=== PATIENT | male | born 1970 | race Caucasian/White ===

== ENCOUNTER 2021-01-29 11:27 | Outpatient (REF) | payer BC, SELFPAY ==
--- NOTE | ~2021-01-29 | XR_ITS ---
EXAMINATION: XR CHEST CLINICAL INFORMATION: U07.1 - COVID-19 COMPARISON: None TECHNIQUE: 2 views of the chest were obtained. FINDINGS: There is some mild coarsening bronchiolar markings lower zones without lobar segmental airspace consolidation or definite groundglass opacity. No hyperinflation. No pneumothorax or pneumomediastinum. The costophrenic sulci are clear. The heart is normal in size and the hilar and mediastinal contours and bony structures are unremarkable. XR/XR chest 2V IMPRESSION: No airspace consolidation or definite groundglass opacity.
[2021-01-29 12:23] LABS: MANUAL DIFF FLAG NO
[2021-01-29 12:31] LABS: Basophils Percent Auto 0.5 % (0-2); Eosinophils Absolute Auto 0.2 X10*3/uL (0.0-0.4); Eosinophils Percent Auto 2.9 % (0-4); Hematocrit 41.2 % (42-52); Hemoglobin 13.5 g/dl (14.0-18.0); Imm Gran Abs Auto 0.02 X10*3/uL (0.00-0.03); Imm Gran Pct Auto 0.3 % (0.0-0.4); Lymphocytes Absolute Auto 2.4 X10*3/uL (1.2-4.9); Lymphocytes Percent Auto 37.7 % (20-40); Mean Corpuscular HGB Conc 32.8 g/dl (31.0-36.0); Mean Corpuscular Hemoglobin 29.7 pg (27.0-33.0); Mean Corpuscular Volume 90.5 fL (80-98); Mean Platelet Volume 10.1 fL (9.4-12.4); Monocytes Absolute Auto 0.5 X10*3/uL (0.1-1.2); Monocytes Percent Auto 8.5 % (2-11); Neutrophils Absolute Auto 3.1 X10*3/uL (2.0-8.3); Neutrophils Percent Auto 50.1 % (45-73); Platelet Count 303 X10*3/uL (160-400); Red Blood Count 4.55 X10*6/uL (4.60-5.80); Red Cell Distribution Width 13.1 % (11.0-16.0); White Blood Count 6.2 X10*3/uL (4.8-10.8)
[2021-01-29 12:50] LABS: Alanine Aminotransferase 23 U/L (0-40); Albumin Level 4.3 g/dL (3.5-5.0); Alkaline Phosphatase 69 U/L (39-117); Anion Gap 14 (12-20); Aspartate Amino Transferase 18 U/L (5-37); Bilirubin Total 0.5 mg/dL (0.0-1.0); Blood Urea Nitrogen 13 mg/dL (9-16); Carbon Dioxide 24 mmol/L (22-29); Chloride 107 mmol/L (96-108); Cholesterol 228 mg/dL; Estimated Glomerular Filt Rate > 60; Glucose Random 84 mg/dL (60-115); HDL Cholesterol 37 mg/dL; LDL Cholesterol Calculated 155 mg/dl; Potassium 4.5 mmol/L (3.3-5.1); Sodium 140 mmol/L (135-145); Total Protein 7.5 g/dL (6.5-8.0); Triglycerides 183 mg/dL
[2021-01-29 13:02] LABS: Thyroid Stimulating Hormone 0.83 uIU/mL (0.32-4.0)
[2021-01-29 13:08] LABS: Glucose Urine UA NEG (NEG); Leukocyte Esterase Urine NEG (NEG); Nitrite Urine NEG (NEG); PH 5.5 (5.0-8.0); Specific Gravity - Urine >= 1.030 (1.005-1.025); Urine Blood NEG (NEG); Urine Ketones NEG (NEG); Urine Protein NEG (NEG-TRACE)
[2021-01-29 13:09] LABS: Appearance Urine CLEAR; Color Urine YELLOW
[2021-01-29 13:28] LABS: Folate 13.5 ng/mL (> or = 4.0); Vitamin B12 489 pg/mL (200-900)
[2021-01-29 13:29] LABS: Prostate Specific Antigen Scr 0.81 ng/mL (<0.05-4.0)
[2021-01-29 13:46] LABS: Mucus Urine TRACE /LPF; RBC Urine 0-2 /HPF (0); Squamous Epithelial Cell Urine 1+ /LPF; WBC Urine 0-2 /HPF (0-4)
== END 2021-01-29 11:28 | disposition home or self-care (01) ==
LOC: HO.LAB 11:27
PROVIDERS: PCP Internal Medicine; Visit Provider Internal Medicine
DX: U07.1 COVID-19 (principal); R42 Dizziness and giddiness; R51.9 Headache, unspecified; E78.00 Pure hypercholesterolemia, unspecified; Z12.5 Encounter for screening for malignant neoplasm of prostate
CPT/HCPCS: 36415; 71046; 80053; 80061; 81001; 82607; 82746; 84153; 84439; 84443; 85025

== ENCOUNTER 2021-07-10 08:21 | Day surgery (SDC) | payer BC, SELFPAY ==
[2021-07-06 09:34] VITALS: BMI 33.5
--- NOTE | 2021-07-09 09:35 | P.CONAN_ITS ---
Documented by User: Renetta Young NP 07/09/21 09:36 HPI - Anesthesia Eval Consult details Narrative: 51yo M for Colonoscopy [facility] Active Problems Active Problems: All Active Problems (Updated 07/06/21 @ 09:31 by Juany Escobar, OLGA) COVID-19 virus infection (Acute) Colon cancer screening (Acute) Annual physical exam (Acute) Hypercholesterolemia (Acute) Anemia (Acute) Obesity (BMI 30-39.9) (Acute) Flank pain (Acute) Rectal bleed (Acute) Constipation (Acute) Past Medical History Medical History (Updated 07/06/21 @ 09:31 by Juany Escobar, OLGA) Anemia COVID-19 vaccine series completed Elevated cholesterol History of COVID-19 Family History Family History (Updated 03/16/21 @ 17:27 by Tony Rubin MD) Mother No problems noted. Brother CVA (cerebral vascular accident) Maternal Grandfather Throat cancer Maternal Aunt Schizophrenia Social History Social History (Updated 01/15/21 @ 11:28 by Lata Watts CMA) Alcohol intake: never Advance Directives: No Advance Directives Information Provided: Yes Meds Allergies Allergy/AdvReac Type Severity Reaction Status Date / Time No Known Allergies Allergy Verified 07/06/21 09:34 Home Medications Medication Instructions Recorded Confirmed Last Taken Type acetaminophen 500 mg capsule 500 mg PO Q6H PRN 01/15/21 07/06/21 Unknown History Exam Exam Date and Time: July 09, 2021 0935 Height,Weight and Vital Signs: Height 5 ft 8 in Weight 100.244 kg Pertinent Lab Results Pertinent Lab Results: Laboratory Tests 01/29/21 01/29/21 11:58 11:58 WBC 6.2 Hgb 13.5 L Hct 41.2 L Plt Count 303 Sodium 140 Potassium 4.5 Chloride 107 Carbon Dioxide 24 BUN 13 Creatinine 0.82 Assessment and Plan Assessment Anesthesia Assessment: Chart Reviewed Documented by User: Elvis Richmond MD 07/10/21 08:42 [facility] Past Medical History Medical History (Updated 07/06/21 @ 09:31 by Juany Escobar RN) Anemia COVID-19 vaccine series completed Elevated cholesterol History of COVID-19 Family History Family History (Updated 03/16/21 @ 17:27 by Tony Rubin MD) Mother No problems noted. Brother CVA (cerebral vascular accident) Maternal Grandfather Throat cancer Maternal Aunt Schizophrenia Family history of problems with anesthesia: No Surgical History History of Problems with Anesthesia: No Social History Social History (Updated 01/15/21 @ 11:28 by Lata Watts CMA) Alcohol intake: never Advance Directives: No Advance Directives Information Provided: Yes Meds Allergies Allergy/AdvReac Type Severity Reaction Status Date / Time No Known Allergies Allergy Verified 07/06/21 09:34 Home Medications Medication Instructions Recorded Confirmed Last Taken Type acetaminophen 500 mg capsule 500 mg PO Q6H PRN 01/15/21 07/06/21 Unknown History Exam Airway Mallampati Class: II TM Dist: >3cm Neck ROM: Full Loose/Missing/Broken Teeth: No Heart: rrr+[id number] Lungs: cta b/l Assessment and Plan Assessment Anesthesia Assessment: Anesthesia Plan Discussed and PAT Visit Final Anesthetic Review Family History of Problems with Anesthesia: No History of Problems with Anesthesia: No NPO: Yes ASA Class: II Final Preanesthetic Review: No Changes in Pt Med Stat, Meds/Allgs Chart Reviewed, Consent Obtained/Reviewed and Anes Risks/Benef Reviewed Patient Risk: Intermediate Procedure Risk: Low Assessment/Block/Sedation in SS: Assess/Block/Sedation-SS Anesthetic Plan Anesthetic Plan: MAC: and Regional Block Disposition: Standard PACU
[2021-07-10 08:26] VITALS: BP 140/79; PULSE 85; RESP 16; TEMP 36.6; O2SAT 96
[2021-07-10] MEDS: Lactated Ringers 1,000 ML 100 ML IVCONT (08:35)
--- NOTE | 2021-07-10 08:42 | MHC.SHP ---
Pre-Procedural Eval Section A Date of Service: 07/10/21 The patient is an INPATIENT: No Changes since office visit: No Cold of Flu in the past 2 weeks, No New Medical Problems, No Changes in Medication and No Patient answered all questions The History & Physical has been completed within 30 days and I have reviewed it.: Yes Section B Chief Complaint: abnormal feces Allergies: Allergies Allergy/AdvReac Type Severity Reaction Status Date / Time No Known Allergies Allergy Verified 07/06/21 09:34 Plan I have reviewed the history and physical and performed a pertinent physical examination on my patient. No changes have occurred unless specified.
[2021-07-10 09:15] VITALS: BP 94/57; PULSE 84; RESP 16; TEMP 37; O2SAT 96
--- NOTE | 2021-07-10 09:16 | P.BOP_ITS ---
Brief Operative Note Date of Service: 07/10/21 Pre-op diagnosis: heme pos stool Post-op diagnosis: same (colon polyps) Procedure: colonoscopy Surgeon: Ronald Lamb Anesthesia: MAC Was an School Psychologist used for this Procedure?: No Estimated blood loss (mL): 2 Pathology: other (polyps x3) Condition: stable Disposition: PACU
[2021-07-10 09:30] VITALS: BP 109/74; PULSE 83; RESP 16; O2SAT 96
--- NOTE | 2021-07-10 09:31 | OP_ITS ---
SURGEON: Ronald Lamb MD INDICATIONS: Hemoccult-positive stools. PREOPERATIVE DIAGNOSIS: POSTOPERATIVE DIAGNOSIS: PROCEDURE PERFORMED: Colonoscopy to the terminal ileum with snare polypectomy. ESTIMATED BLOOD LOSS: COMPLICATIONS: ANESTHESIA: ASSISTANTS: SPECIMENS: MEDICATIONS: Monitored anesthesia care. DESCRIPTION OF PROCEDURE: History and physical performed. The risks and benefits of the procedure were explained to the patient. Informed consent was obtained. The patient was placed in the left lateral decubitus position. A digital rectal exam was performed and was found to be normal. The Olympus pediatric video colonoscope was introduced into the rectum and advanced to the cecum without difficulty. The cecum was identified by transillumination, palpation, and identification of ileocecal valve. Examination was performed and the scope was removed. He tolerated the procedure well and was taken to recovery area in stable condition. FINDINGS: The terminal ileum was examined and appeared normal. The visualized colonic mucosa was normal. The quality of the prep was good. Three polyps were identified and removed with a snare, all measured less than 10 mm. These were located at 80, 60, and 40 cm. No other polyps were identified. Retroflexed examination showed internal hemorrhoids. IMPRESSION: Colon polyps. RECOMMENDATION: Follow up the biopsy results. MD RAMIREZ Still/TRAVON / [id number]
[2021-07-10 09:43] VITALS: BP 102/65; PULSE 79; RESP 16; O2SAT 96
--- NOTE | 2021-07-10 10:10 | PC.NURSE ---
Discharge instructions by Snehal Lucas RN with [facility] [place] Hydraulic Rockbreaker Operator
== END 2021-07-10 10:10 | disposition home or self-care (01) ==
PROVIDERS: PCP Internal Medicine; Visit Provider Internal Medicine Gastroenterology
PROC: 0DJD8ZZ Inspection of Lower Intestinal Tract, Via Natural or Artificial Opening Endoscopic (ICD-10-PCS; CPT 45378; principal; 2021-07-10 08:50)
DX: R19.5 Other fecal abnormalities (principal); D12.4 Benign neoplasm of descending colon; D12.5 Benign neoplasm of sigmoid colon; K64.8 Other hemorrhoids; D64.9 Anemia, unspecified; Z79.899 Other long term (current) drug therapy; Z86.16 Personal history of COVID-19
CPT/HCPCS: 45385; 88305

== ENCOUNTER 2023-07-29 10:00 | Outpatient (AMB) | payer BC, SELFPAY ==
[2023-07-29 10:23] VITALS: BP 130/76; PULSE 84; O2SAT 98; BMI 35.6
--- NOTE | 2023-07-29 10:23 | MHC.PC.OV ---
Vital Signs 07/29/23 10:23 Height 5 ft 8 in Weight 234 lb BMI 35.6 BP 130/76 Blood Pressure Location Lt brachial Position Sitting Pulse 84 Pulse Source Pulse Oximeter Pulse Oximetry (%) 98 Oxygen Delivery Method Room Air Intake Visit Reasons: Physical exam Allergies No Known Allergies Allergy (Verified 07/29/23 10:24) Medication List - Last Reconciled 07/29/23 by Tony Rubin MD acetaminophen 500 mg PO Q6H PRN Tobacco use date assessed: 07/29/23 Dental Screening Dental Screen Date: 07/29/23 Did you have a dental visit in the last 12 months?: Yes Did you have a dental problem in the last 6 months where you did not have access to dental care?: No Was dental information given to patient?: Patient has dentist HPI Physical exam HPI Details 53-year-old obese male with hypercholesterolemia and anemia comes in for physical exam last seen in 2020.. Patient had colonoscopy done July 2021 had colon polyps tubular adenoma. dizzy 1 months. complains coughing- and sob, intermittent, 2 months Tiki 99 interpret PFSH Medical History (Updated 07/29/23 @ 11:01 by Tony Rubin MD) COVID-19 vaccine series completed History of COVID-19 Elevated cholesterol Anemia Family History (Updated 07/29/23 @ 11:06 by Tony Rubin MD) Mother CVA (cerebral vascular accident) Brother CVA (cerebral vascular accident) Maternal Grandfather Throat cancer Maternal Aunt Schizophrenia Social History (Updated 07/29/23 @ 11:06 by Tony Rubin MD) Alcohol intake: never Patient Tobacco Use Status: Never used Tobacco Cognitive needs: No Hearing needs: No Vision needs: No Questionnaire PHQ-9 Over the last 2 weeks, how often have you been bothered by any of the following problems? 1. Little interest or pleasure in doing things: not at all 2. Feeling down, depressed, or hopeless: not at all 3. Trouble falling or staying asleep, or sleeping too much: not at all 4. Feeling tired or having little energy: not at all 5. Poor appetite or overeating: not at all 6. Feeling bad about yourself - or that you are a failure or have let yourself or your family down: not at all 7. Trouble concentrating on things, such as reading the newspaper or watching television: not at all 8. Moving or speaking so slowly that other people could have noticed. Or the opposite - being so fidgety or restless that you have been moving around a lot more than usual: not at all 9. Thoughts that you would be better off or of hurting yourself in some way: not at all Total score: 0 Depression Screening Interpretation: Negative Source: Developed by Drs. Sen Watson, Shayy Chaudhary, Jacob Siddiqi and colleagues, with an educational amandeep from [employer]. Thrive Questionnaire Date Thrive assessed: 07/29/23 I am a: Patient What is your living situation today?: I have a steady place to live Within the past 12 months, did the food you bought not last and you didn't have the money to get more?: Never true Within the past 12 months, did you worry whether your food would run out before you got money to buy more?: Never true Do you have trouble paying for medicines?: No Do you have trouble getting transportation to medical appointments?: No Do you have trouble paying your heating and electricity bill?: No Do you have trouble taking care of your child, family member or friend?: No Do you have trouble with day-to-day activities such as bathing, preparing meals, shopping, managing finances, etc.?: No Are you currently unemployed and looking for a job?: No Are you interested in more education?: No Currently or been in a relationship where the following occur: no concerns reported AUDIT C Alcohol Use Questionnaire (AUDIT-C) 1. How often do you have a drink containing alcohol?: Never 2. How many drinks containing alcohol do you have on a typical day when you are drinking?: 1 or 2 (0) 3. How often do you have six or more drinks on one occasion?: Never Total Score: 0 PRUDENCIO-7 AMB Questionnaire PRUDENCIO-7 Date PRUDENCIO - 7 assessed: 07/29/23 Feeling nervous, anxious, or on edge: 0 = Not at all Not being able to stop or control worryin = Not at all Worrying too much about different things: 0 = Not at all Trouble relaxin = Not at all Being so restless that it is hard to sit still: 0 = Not at all Becoming easily annoyed or irritable: 0 = Not at all Feeling afraid as if something awful might happen: 0 = Not at all Total PRUDENCIO-7 score (0-4 normal; 5-9 mild; 10-14 moderate; 15-21 severe): 0 Source: Developed by Drs. Sen Watson, Shayy Chaudhary, Jacob Siddiqi and colleagues, with an educational amandeep from [employer]. Review of Systems Const Denies poor appetite and Denies weakness Eyes Denies no additional complaints ENT Reports Normal hearing present, Denies dizziness, Denies nasal congestion, Denies tinnitus and Denies sore throat Card Denies chest pain, Denies syncope, Denies rapid heart rate and Denies dyspnea Resp Denies cough and Denies dyspnea GI Denies change in stool character, Reports constipation, Denies diarrhea, Denies nausea and Denies vomiting Denies dysuria and Denies urinary frequency Neuro Reports Normal hearing present, Denies confusion, Denies dizziness, Denies syncope and Denies weakness Psych Denies confusion Physical exam (Primary Care) Vital Signs: Last Vital Signs Pulse 84 07/29/23 10:23 BP 130/76 07/29/23 10:23 Pulse Ox 98 07/29/23 10:23 Oxygen Delivery Method Room Air 07/29/23 10:23 BMI result Body Mass Index 35.6 Tobacco/Smoking Status: Tobacco use Status Tobacco use date assessed 07/29/23 07/29/23 10:27 Patient Tobacco Use Status Never used Tobacco 07/29/23 11:06 PHQ-9: PHQ-9 Score PHQ-9: Total score 0 07/29/23 11:11 Depression Screening Interpretation: Negative Thrive Assessment: Date of Thrive Assessment Date Thrive assessed 07/29/23 07/29/23 10:27 Currently or been in a relationship where the following occur: no concerns reported Const General: alert and awake; No confusion Orientation/consciousness: No confusion HENMT Head: Yes normocephalic Ears: external ears normal and TM's normal bilaterally Face and sinus: Yes normal facial exam Mouth: moist mucous membranes Throat: Yes tonsils normal Eyes Conjunctivae: conjunctivae normal Pupils: Equal, round and reactive pupils present and Pupil accommodation reflex normal Direct Ophthalmoscopy: normal light reflex Neck Neck: No lymphadenopathy Thyroid: Thyroid normal Chest Chest palpation & inspection: normal inspection of the chest Resp Effort & Inspection: normal respiratory effort and no audible wheezes Auscultation: clear to auscultation bilaterally, no crackles, no wheezes and lung sounds not diminished Cardio Rate: regular rate Rhythm: regular rhythm Peripheral pulses: radial pulses present and dorsalis pedis present GI Palpation (GI): no masses Auscultation: normal bowel sounds and normoactive bowel sounds Rectal Exam - Male: Yes deferred Skin General skin exam: no rashes or lesions noted Rashes: no rashes Neuro General: deep tendon reflexes 2+ bilaterally and No confusion Cranial nerves: Yes Equal, round and reactive pupils present, Yes Midline tongue present, Yes Normal hearing present and Yes Ability to bilaterally elevate shoulders present Cognition (Neuro): normal cognition Gait exam (Neuro): Normal gait present Motor exam (neuro): 5/5 motor strength present throughout Deep tendon reflexes (DTR's): Right brachioradialis reflex intensity grade: 2+, Left brachioradialis reflex intensity grade: 2+, Right patellar reflex intensity grade: 2+ and Left patellar reflex intensity grade: 2+ Extrem General: No edema Immunizations tetanus-diphtheria toxoids-Td 2 Lf unit-2 Lf unit/0.5 mL IM suspension Performing Provider: Tony Rubin MD Per[facility] Administered by: MARIPOSA Varner on 07/29/23 11:37 Dose Route Admin Location Dispensed Lot Number Expiration Date [employer]DC Water [employer] 0.5 mL IM Left Deltoid 0.5 mL [id number] 03/12/24 [address]-2 [employer] VIS Given Date VIS Provided VIS Publication Date 07/29/23 Single Vaccine 21 Eligibility Eligibility Date Funding Source Not [facility] Eligible 07/29/23 State funds Assessment and Plan Assessment & Plan (1) Annual physical exam: Code(s): Z00.00 - Encounter for general adult medical examination without abnormal findings (2) Hypercholesterolemia: Code(s): E78.00 - Pure hypercholesterolemia, unspecified Plan: Avoid fried foods, chicken skin, eggs, butter margarine, pastries and meat. Be it pork or beef they have a lot of cholesterol LDL goal of less than 130 and triglyceride of less than 150. 2020 last blood work (3) Tubular adenoma of colon: Comment: July 2021 Dr. Lamb Code(s): D12.6 - Benign neoplasm of colon, unspecified Plan: Tubular adenoma July 2021 (4) Obesity (BMI 30-39.9): Code(s): E66.9 - Obesity, unspecified Plan: Diet and exercise (5) Anemia: Code(s): D64.9 - Anemia, unspecified Qualifiers: Anemia type: unspecified type Qualified Code(s): D64.9 - Anemia, unspecified Plan: Will follow-up this with blood work Orders: Orders Ferritin Today D64.9 - Anemia, unspecified Free T4 (Free Thyroxine) Today D64.9 - Anemia, unspecified Thyroid Stimulating Hormone Today D64.9 - Anemia, unspecified Comprehensive Met. Panel Today D64.9 - Anemia, unspecified XR chest 2V Today D64.9 - Anemia, unspecified ECG 12 lead EKG Today D64.9 - Anemia, unspecified Td State Immunization Today Z23 - Encounter for immunization Complete Blood Count Auto Diff Today D64.9 - Anemia, unspecified IRON PROFILE Today D64.9 - Anemia, unspecified Prostate Specific Antigen Scr Today D64.9 - Anemia, unspecified Vitamin B12 and Folate Today D64.9 - Anemia, unspecified Lipid Panel Today D64.9 - Anemia, unspecified, E78.00 - Pure hypercholesterolemia, unspecified Reticulocyte Count Today D64.9 - Anemia, unspecified Coding Level of Care Code Est Pt Prev Care 40-64y(47280) Diagnoses Annual physical exam Z00.00 Hypercholesterolemia E78.00 Tubular adenoma of colon D12.6 Obesity (BMI 30-39.9) E66.9 Anemia, unspecified type D64.9 Anemia type: unspecified type
== END 2023-07-29 14:43 | disposition home or self-care (01) ==
PROVIDERS: PCP Internal Medicine; Visit Provider Internal Medicine
DX: Z23 Encounter for immunization (principal); Z00.00 Encounter for general adult medical examination without abnormal findings; E78.00 Pure hypercholesterolemia, unspecified; E66.9 Obesity, unspecified; Z68.35 Body mass index [BMI] 35.0-35.9, adult
CPT/HCPCS: 90471; 90714; 99396

== ENCOUNTER 2023-12-01 10:35 | Outpatient (REF) | payer BC, SELFPAY ==
[2023-12-01 10:47] LABS: MANUAL DIFF FLAG NO
[2023-12-01 11:14] LABS: Basophils Absolute Auto 0.1 X10*3/uL (0.0-0.2); Basophils Percent Auto 0.8 % (0-2); Eosinophils Absolute Auto 0.1 X10*3/uL (0.0-0.4); Eosinophils Percent Auto 1.5 % (0-4); Hematocrit 39.7 % (42.0-52.0); Hemoglobin 13.1 g/dl (14.0-18.0); Imm Gran Abs Auto 0.03 X10*3/uL (0.00-0.03); Imm Gran Pct Auto 0.4 % (0.0-0.4); Immature Retic Fraction 12.5 % (2.3-13.4); Lymphocytes Absolute Auto 2.6 X10*3/uL (1.2-4.9); Lymphocytes Percent Auto 34.9 % (20-40); Mean Corpuscular Volume 90.8 fL (80.0-98.0); Mean Platelet Volume 10.2 fL (9.4-12.4); Monocytes Absolute Auto 0.8 X10*3/uL (0.1-1.2); Neutrophils Absolute Auto 3.8 x10*3/uL (2.0-8.3); Neutrophils Percent Auto 51.4 % (45-73); Platelet Count 315 X10*3/uL (160-400); Red Blood Count 4.37 X10*6/uL (4.60-5.80); Red Cell Distribution Width 12.7 % (11.0-16.0); Retic HGB Equivalent 35.6 pg (30.0-35.0); Reticulocyte Percent 1.6 % (0.5-1.8); Reticulocytes Absolute 0.068 X10*6/uL (0.026-0.095); White Blood Count 7.4 X10*3/uL (4.8-10.8)
[2023-12-01 11:43] LABS: Alanine Aminotransferase 24 U/L (0-40); Albumin Level 3.9 g/dL (3.5-5.0); Alkaline Phosphatase 68 U/L (39-117); Anion Gap 10 (12-20); Aspartate Amino Transferase 17 U/L (5-37); Bilirubin Total 0.3 mg/dL (0.0-1.0); Blood Urea Nitrogen 14 mg/dL (9-16); Calcium 8.8 mg/dL (8.4-10.2); Carbon Dioxide 27 mmol/L (22-29); Chloride 108 mmol/L (96-108); Cholesterol 183 mg/dL (<200); Estimated Glomerular Filt Rate > 60; Glucose Random 83 mg/dL (60-115); HDL Cholesterol 34 mg/dL (>40); Iron 84 mcg/dL (45-160); LDL Cholesterol Calculated 111 mg/dL (<100); Percent Iron Saturation 35 % (15-50); Potassium 4.1 mmol/L (3.3-5.1); Sodium 141 mmol/L (135-145); Total Iron Binding Capacity 237 mcg/dL (228-428); Total Protein 7.1 g/dL (6.5-8.0); Triglycerides 191 mg/dL (<150); Unsaturated Iron Binding 153 ug/dL
[2023-12-01 12:03] LABS: Ferritin 276 ng/mL (20-250); Free T4 (Free Thyroxine) 0.92 ng/dL (0.71-1.85); Thyroid Stimulating Hormone 1.01 uIU/mL (0.32-4.0)
[2023-12-01 12:15] LABS: Folate 11.1 ng/mL (> or = 4.0); Prostate Specific Antigen Scr 0.94 ng/mL (<0.05-4.0)
[2023-12-01 12:20] LABS: Vitamin B12 474 pg/mL (200-900)
== END 2023-12-01 10:36 | disposition home or self-care (01) ==
LOC: HO.LAB 10:35
PROVIDERS: PCP Internal Medicine; Visit Provider Internal Medicine
DX: D64.9 Anemia, unspecified (principal); E78.00 Pure hypercholesterolemia, unspecified; Z12.5 Encounter for screening for malignant neoplasm of prostate
CPT/HCPCS: 36415; 80053; 80061; 82607; 82728; 82746; 83540; 84153; 84439; 84443; 85025; 85045

== ENCOUNTER 2023-12-02 09:28 | Outpatient (AMB) | payer BC, SELFPAY ==
[2023-12-02 09:29] VITALS: BP 132/86; PULSE 92; O2SAT 95; BMI 36.0
--- NOTE | 2023-12-02 09:29 | A.OFFPC_ITS ---
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 Review of the notes had a physical at that time and was advised blood work and is here for follow-up. [facility] Medical History (Updated 07/29/23 @ 11:01 by Tony Rubin MD) COVID-19 vaccine series completed History of COVID-19 Elevated cholesterol Anemia Family History (Updated 07/29/23 @ 11:06 by Tony Rubin MD) Mother CVA (cerebral vascular accident) Brother CVA (cerebral vascular accident) Maternal Grandfather Throat cancer Maternal Aunt Schizophrenia Social History (Updated 07/29/23 @ 11:06 by Tony Rubin MD) Alcohol intake: never Patient Tobacco Use Status: Never used Tobacco Cognitive needs: No Hearing needs: No Vision needs: No Questionnaire PHQ-9 Over the last 2 weeks, how often have you been bothered by any of the following problems? 1. Little interest or pleasure in doing things: not at all 2. Feeling down, depressed, or hopeless: not at all 3. Trouble falling or staying asleep, or sleeping too much: not at all 4. Feeling tired or having little energy: not at all 5. Poor appetite or overeating: not at all 6. Feeling bad about yourself - or that you are a failure or have let yourself or your family down: not at all 7. Trouble concentrating on things, such as reading the newspaper or watching television: not at all 8. Moving or speaking so slowly that other people could have noticed. Or the opposite - being so fidgety or restless that you have been moving around a lot more than usual: not at all 9. Thoughts that you would be better off or of hurting yourself in some way: not at all Total score: 0 Depression Screening Interpretation: Negative Depression Screening Done: Yes Source: Developed by Drs. Sen Watson, Shayy Chaudhary, Jacob Siddiqi and colleagues, with an educational amandeep from [employer]. Thrive Questionnaire Date Thrive assessed: 07/29/23 AUDIT C Alcohol Use Questionnaire (AUDIT-C) 1. How often do you have a drink containing alcohol?: Never 2. How many drinks containing alcohol do you have on a typical day when you are drinking?: 1 or 2 (0) 3. How often do you have six or more drinks on one occasion?: Never Total Score: 0 PRUDENCIO-7 AMB Questionnaire PRUDENCIO-7 Date PRUDENCIO - 7 assessed: 12/02/23 Source: Developed by Drs. Sen Watson, Shayy Chaudhary, Jacob Siddiqi and colleagues, with an educational amandeep from [employer]. Physical exam (Primary Care) Vital Signs: Last Vital Signs Pulse 92 12/02/23 09:29 BP 132/86 12/02/23 09:29 Pulse Ox 95 12/02/23 09:29 Oxygen Delivery Method Room Air 12/02/23 09:29 BMI result Body Mass Index 36.0 Tobacco/Smoking Status: Tobacco use Status Tobacco use date assessed 12/02/23 12/02/23 09:37 Patient Tobacco Use Status Never used Tobacco 12/02/23 09:29 PHQ-9: PHQ-9 Score PHQ-9: Total score 0 12/02/23 09:39 Depression Screening Interpretation: Negative Thrive Assessment: Date of Thrive Assessment Date Thrive assessed 07/29/23 12/02/23 09:29 Const General: alert; No acute distress Eyes Conjunctivae: conjunctivae normal Resp Auscultation: clear to auscultation bilaterally Cardio Rate: regular rate Rhythm: regular rhythm GI Inspection: Yes normal to inspection Extrem General: Yes normal to inspection and No edema Assessment and Plan Assessment & Plan (1) Anemia: Code(s): D64.9 - Anemia, unspecified Qualifiers: Anemia type: unspecified type Qualified Code(s): D64.9 - Anemia, unspecified Plan: Chronic anemia continue to monitor. Up-to-date with colonoscopy (2) Hypercholesterolemia: Code(s): E78.00 - Pure hypercholesterolemia, unspecified Plan: Avoid fried foods, chicken skin, eggs, butter margarine, pastries and meat. Be it pork or beef they have a lot of cholesterol LDL goal of less than 130 and triglyceride of less than 150. Diet control (3) Obesity (BMI 30-39.9): Code(s): E66.9 - Obesity, unspecified Plan: Diet and exercise Coding Level of Care Code Est Pt Level 4 (18249) Diagnoses Anemia, unspecified type D64.9 Anemia type: unspecified type Hypercholesterolemia E78.00 Obesity (BMI 30-39.9) E66.9
== END 2023-12-02 10:26 | disposition home or self-care (01) ==
PROVIDERS: PCP Internal Medicine; Visit Provider Internal Medicine
DX: D64.9 Anemia, unspecified (principal); E78.00 Pure hypercholesterolemia, unspecified; E66.9 Obesity, unspecified; Z68.36 Body mass index [BMI] 36.0-36.9, adult
CPT/HCPCS: 99214

== ENCOUNTER 2024-05-02 14:16 | Outpatient (AMB) | payer BC, SELFPAY ==
[2024-05-02 14:18] VITALS: BP 140/70; PULSE 87; O2SAT 97; BMI 34.5
--- NOTE | 2024-05-02 14:18 | A.OFFPC_ITS ---
Vital Signs 05/02/24 14:18 Height 5 ft 8 in Weight 227 lb BMI 34.5 BP 140/70 H Blood Pressure Location Lt brachial Position Sitting Pulse 87 Pulse Source Pulse Oximeter Pulse Oximetry (%) 97 Oxygen Delivery Method Room Air Intake Visit Reasons: lump right breast Soaking Room Operator Required: No Rn Maternal Child: Not Required per policy Accompanied by: Self / Same As Patient Allergies No Known Allergies Allergy (Verified 05/02/24 14:18) Medication List - Last Reconciled 05/02/24 by Tony Rubin MD amoxicillin-pot clavulanate 875-125 mg 1 tab PO BID Tobacco use date assessed: 12/02/23 Dental Screening Dental Screen Date: 12/02/23 HPI lump right breast HPI Details 54-year-old obese male(noted 10 lb weigh t loss) with anemia and hypercholesterolemia last seen in 11/26/2023. Patient is up-to-date with colonoscopy 07/27/2021. Last blood work was 11/26/2023 patient comes in for a specific problem. noted R breast mass 1 month , no trauma, nmo discharge, , has pain on working of [employer] [facility] Medical History (Updated 05/02/24 @ 14:47 by Tony Rubin MD) COVID-19 vaccine series completed History of COVID-19 Elevated cholesterol Anemia Family History Mother CVA (cerebral vascular accident) Brother CVA (cerebral vascular accident) Maternal Grandfather Throat cancer Maternal Aunt Schizophrenia Social History (Updated 07/29/23 @ 11:06 by Tony Rubin MD) Alcohol intake: never Patient Tobacco Use Status: Never used Tobacco Cognitive needs: No Hearing needs: No Vision needs: No Questionnaire Thrive Questionnaire Date Thrive assessed: 07/29/23 PRUDENCIO-7 AMB Questionnaire PRUDENCIO-7 Date PRUDENCIO - 7 assessed: 12/02/23 Source: Developed by Drs. Sen Watson, Shayy Chaudhary, Jacob Siddiqi and colleagues, with an educational amandeep from [employer]. Physical exam (Primary Care) Vital Signs: Last Vital Signs Pulse 87 05/02/24 14:18 BP 140/70 H 05/02/24 14:18 Pulse Ox 97 05/02/24 14:18 Oxygen Delivery Method Room Air 05/02/24 14:18 BMI result Body Mass Index 34.5 Tobacco/Smoking Status: Tobacco use Status Tobacco use date assessed 12/02/23 05/02/24 14:19 Patient Tobacco Use Status Never used Tobacco 05/02/24 14:19 Thrive Assessment: Date of Thrive Assessment Date Thrive assessed 07/29/23 05/02/24 14:19 Const General: alert; No acute distress Eyes Conjunctivae: conjunctivae normal Chest Other: breast exam tender retroareolar R 2 cm and L normal Resp Auscultation: clear to auscultation bilaterally Cardio Rate: regular rate Rhythm: regular rhythm GI Inspection: Yes normal to inspection Extrem General: Yes normal to inspection and No edema Assessment and Plan Assessment & Plan (1) Obesity (BMI 30-39.9): Code(s): E66.9 - Obesity, unspecified Plan: Diet and exercise noted weight loss. (2) Anemia: Comment: Anemia of chronic disease Code(s): D64.9 - Anemia, unspecified Qualifiers: Anemia type: unspecified type Qualified Code(s): D64.9 - Anemia, unspe cified Plan: Continuing to monitor. (3) Breast mass, right: Comment: R breast mass retroareolar 2 cm Code(s): N63.10 - Unspecified lump in the right breast, unspecified quadrant Qualifiers: Breast mass location: subareolar Qualified Code(s): N63.41 - Unspecified lump in right breast, subareolar Plan: With the tenderness will sent in antibiotic but ultrasound and mammogram requested Orders: Orders MM tomosynthesis diagnostic BI Today N63.10 - Unspecified lump in the right breast, unspecified quadrant US breast RT limited Today N63.10 - Unspecified lump in the right breast, unspecified quadrant Medications: New amoxicillin-pot clavulanate 875-125 mg 1 tab PO BID 14 tabs 0RF N63.10 - Unspecified lump in the right breast, unspecified quadrant Coding Level of Care Code Est Pt Level 4 (95408) Diagnoses Obesity (BMI 30-39.9) E66.9 Anemia, unspecified type D64.9 Anemia type: unspecified type Subareolar mass of right breast N63.41 Breast mass location: subareolar
== END 2024-05-02 14:50 | disposition home or self-care (01) ==
PROVIDERS: PCP Internal Medicine; Visit Provider Internal Medicine
DX: D64.9 Anemia, unspecified (principal); N63.41 Unspecified lump in right breast, subareolar; E66.9 Obesity, unspecified; Z68.34 Body mass index [BMI] 34.0-34.9, adult
CPT/HCPCS: 99214

== ENCOUNTER 2024-05-28 13:27 | Outpatient (REF) | payer BC, SELFPAY ==
--- NOTE | ~2024-05-28 | MM_ITS ---
EXAMINATION: MM DIAGNOSTIC DIGITAL BREAST TOMOSYNTHESIS, BILATERAL US BREAST LIMITED, BILATERAL MAMMOGRAPHY: CLINICAL INFORMATION: 54 year male presenting with bilateral retroareolar swelling, tenderness, with itchiness of the nipples. COMPARISON: Mammography: No prior. Baseline exam. TECHNIQUE: Digital breast tomosynthesis is performed in both the craniocaudal and mediolateral oblique views along with computer-aided detection (CAD). Synthesized 2D images are generated from the tomosynthesis. FINDINGS: The breasts are almost entirely fatty (ACR BI-RADS breast composition Category a). There is right greater than left retroareolar breast tissue development, consistent with moderate right greater than left male gynecomastia. There is no suspicious mass, suspicious calcifications, or area of architectural distortion in either breast. There is no skin or axillary abnormality. ULTRASOUND: CLINICAL INFORMATION: As above COMPARISON: None TECHNIQUE: Targeted sonographic evaluation bilateral breasts was performed using a high frequency linear transducer. The retroareolar regions of both breasts were focused on. Selected archived documentation. FINDINGS: RIGHT BREAST: There is moderate retroareolar breast tissue development consistent with male gynecomastia. No suspicious mass is seen. There is no cystic abnormality. There is no pathologic acoustic shadowing. LEFT BREAST: There is mild to moderate retroareolar breast tissue development consistent with male gynecomastia. In addition, in the 4:00 axis of the left breast, abutting the pectoralis fascia, there is a triangular shaped hypoechoic region with posterior acoustic attenuation, measuring approximately 1.3 x 1.1 x 1.3 cm. This has no internal color Doppler flow but robust abutting color Doppler signal. It is somewhat irregular. This finding is suspicious. In addition, directly above this is a somewhat linear tubular structure with low-level internal echoes, and no color Doppler signal. This could be a thrombosed vein, or a duct filled with debris or mass. MM/MM tomosynthesis diagnostic BI IMPRESSION: -In the left breast at the 4:00 axis, there is an irregular markedly hypoechoic masslike region abutting the pectoralis-as described above, suspicious. Recommend ultrasound-guided biopsy. -There are no suspicious findings in the right breast. -There is moderate right and mild to moderate left male gynecomastia. Recommend clinical management and follow-up for these findings. -Findings recommendations discussed with the patient in detail, who appeared to understand. OVERALL ASSESSMENT: Mammography: BI-RADS 4 - Suspicious finding Ultrasound: BI-RADS 4 - Suspicious finding RECOMMENDATION: Biopsy recommended
== END 2024-05-28 13:28 | disposition home or self-care (01) ==
LOC: HO.MAMMO 13:27
PROVIDERS: PCP Internal Medicine; Visit Provider Internal Medicine
DX: R92.8 Other abnormal and inconclusive findings on diagnostic imaging of breast (principal); N63.10 Unspecified lump in the right breast, unspecified quadrant; N64.4 Mastodynia; N63.0 Unspecified lump in unspecified breast; L29.8 Other pruritus
CPT/HCPCS: 76642; 77062; 77066

== ENCOUNTER → 2024-05-28 13:30 | Outpatient (BNV) | payer BC, SELFPAY | PROVIDERS: PCP Internal Medicine; Visit Provider Radiology Diagnostic Radiology | DX: N63.10 Unspecified lump in the right breast, unspecified quadrant (principal) | CPT/HCPCS: 76642; 77062; 77066 ==

== ENCOUNTER 2024-06-11 08:49 | Outpatient (AMB) | payer BC, SELFPAY ==
--- NOTE | 2024-06-11 08:51 | A.OFFVIS_ITS ---
Vital Signs 06/11/24 08:57 Height 5 ft 8 in Weight 227 lb BMI 34.5 BP 131/70 Blood Pressure Location Rt brachial Position Sitting Pulse 75 Intake Visit Reasons: ultrasound biopsy left breast 4 o'clock mass Intake Note: Patient referred by pcp Dr. Rubin for US guided bx lt br 4 o'clock mass. Patient noticed mass 2m ago. Denies prior trauma. Tenderness with touch. Patient had similar growth on rt br but cleared w/amoxicillin course. Bilateral br US and Mammo: 05-28-2024. 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 He has had a proximally 2 month history of left breast subareolar mass. Because of concerns, patient has had extensive workup including mammogram and ultrasound demonstrating/confirming this process. Patient was tentatively scheduled for ultrasound-guided biopsy. Patient not recall any trauma to the area. He has not taken any supplemental hormones. Family history positive for sister for breast cancer Chart was reviewed and patient evaluated. [facility] Medical History COVID-19 vaccine series completed History of COVID-19 Elevated cholesterol Anemia Family History Mother CVA (cerebral vascular accident) Brother CVA (cerebral vascular accident) Maternal Grandfather Throat cancer Maternal Aunt Schizophrenia Social History Alcohol intake: never Patient Tobacco Use Status: Never used Tobacco Cognitive needs: No Hearing needs: No Vision needs: No Physical Exam Vital Signs: Last Vital Signs Pulse 75 06/11/24 08:57 BP 131/70 06/11/24 08:57 BMI result Body Mass Index 34.5 HEENT Other: No cervical periclavicular axillary adenopathy Chest Other: Right breast within normal limits. No obvious mass, discharge, adenopathy, or skin changes. Contralateral left breast demonstrates a small subareolar mass at a proximally 1 to 3 o'clock position. This measured approximately 2 cm. Nontender GI Other: Abdomen corpulent, soft, benign Assessment & Plan Assessment & Plan (1) Left breast mass: Comment: May 2024n the left breast at the 4:00 axis, there is an irregular markedly hypoechoic masslike region abutting the pectoralis-as described above, suspicious. Recommend ultrasound-guided biopsy. -There are no suspicious findings in the right breast. -There is moderate right and mild to moderate left male gynecomastia. Recommend clinical management and follow-up for these findings. -Findings recommendations discussed with t Code(s): N63.20 - Unspecified lump in the left breast, unspecified quadrant Category: Surgical Plan Patient is tentatively scheduled for ultrasound-guided biopsy. Patient will see me after this and further interventions studies will be directed by the above- mentioned results. All questions answered Coding Level of Care Code New Pt Level 4 (24695) Diagnoses Left breast mass N63.20
[2024-06-11 08:57] VITALS: BP 131/70; PULSE 75; BMI 34.5
== END 2024-06-11 09:11 | disposition home or self-care (01) ==
PROVIDERS: PCP Internal Medicine; Visit Provider Surgery
DX: N63.20 Unspecified lump in the left breast, unspecified quadrant (principal)
CPT/HCPCS: 99204

== ENCOUNTER → 2024-06-11 10:00 | Outpatient (BNV) | payer BC, SELFPAY | PROVIDERS: PCP Internal Medicine; Visit Provider Radiology Diagnostic Radiology | DX: N63.23 Unspecified lump in the left breast, lower outer quadrant (principal) | CPT/HCPCS: 19083; 77065 ==

== ENCOUNTER 2024-06-11 10:06 | Outpatient (REF) | payer BC, SELFPAY ==
--- NOTE | ~2024-06-11 | MM_ITS ---
PROCEDURE: US GUIDED BREAST BIOPSY, LEFT CLINICAL INFORMATION: Suspicious triangular shaped hypoechoic mass left breast 4:00 axis, posterior one third, recommended for biopsy. COMPARISON: 05/28/2024 ultrasound and mammography. PROCEDURAL DETAILS: The details of the procedure, as well as the risks, benefits, and alternatives to the procedure were explained to the patient in detail with the aid of a exceptional needs teacher and all of his questions were answered, after which written informed consent was obtained. Site and side were confirmed. Prior to the procedure, sonography revealed triangular-shaped hypoechoic masslike region with posterior acoustic attenuation, 4:00 axis right breast, measuring approximate 1.3 x 1.1 x 1.3 cm.. A time-out was performed, the lesion intended for biopsy was targeted, and the skin of the overlying left breast was then marked, prepped and draped in the usual sterile fashion. Using sonographic guidance, sterile technique, and 1% lidocaine without epinephrine for local anesthesia, multiple core biopsies were obtained through the targeted area with a 14G spring loaded gridCommera core biopsy device. There was real-time confirmation of appropriate needle passage. Sampling was documented. At the completion of tissue sampling, a single open coil-shaped metallic clip was deposited at the biopsy site. There was no evidence of immediate complication. SPECIMEN: 4 well formed core samples were obtained DIGITAL POST-PROCEDURE MAMMOGRAPHY: Breast density: The tissue contains scattered areas of fibroglandular density. BI-RADS version 5, category B. There are no new mammographic findings demonstrated. The postprocedure 2-view direct digital mammogram reveals satisfactory and accurate positioning of the biopsy clip. No hematoma present. The patient tolerated the procedure well and, after assuring adequate hemostasis, was discharged in good condition after reviewing postbiopsy breast care instructions. Final pathology results are pending. MM/MM tomosynthesis diagnostic LT IMPRESSION: 1. No immediate complication from ultrasound-guided percutaneous biopsy 4:00 axis left breast. 2. Ultrasound was used to localize and guide marker clip placement. 3. The 2-view direct digital postprocedure mammogram reveals satisfactory positioning of the biopsy clip. No hematoma or complication. 4. Final pathology results are pending. A separate report with final recommendations will be issued once these results are made available.
[2024-06-11] MEDS: Sodium Bicarbonate 8.4% 50 MEQ/50 ML VIAL SUBCUT (11:19)
[2024-06-11] MEDS: Lidocaine HCl 1 % 20 ML VIAL 7 ML SUBCUT (11:23)
== END 2024-06-11 10:07 | disposition home or self-care (01) ==
LOC: HO.MAMMO 10:06
PROVIDERS: PCP Internal Medicine; Visit Provider Surgery
DX: N63.23 Unspecified lump in the left breast, lower outer quadrant (principal); E65 Localized adiposity
CPT/HCPCS: 19083; 77061; 77065; 88305; A4648; C1894

== ENCOUNTER → 2024-12-05 12:35 | Outpatient (BNVA) | payer BC, SELFPAY | PROVIDERS: PCP Internal Medicine; Visit Provider Internal Medicine | DX: Z00.00 Encounter for general adult medical examination without abnormal findings (principal); E78.00 Pure hypercholesterolemia, unspecified; D64.9 Anemia, unspecified; E66.9 Obesity, unspecified; Z68.35 Body mass index [BMI] 35.0-35.9, adult; N63.23 Unspecified lump in the left breast, lower outer quadrant; N62 Hypertrophy of breast; L30.9 Dermatitis, unspecified | CPT/HCPCS: 96127 ==

== ENCOUNTER 2025-01-22 11:08 | Outpatient (REF) | payer BC, SELFPAY | END 2025-01-22 11:09 | disposition home or self-care (01) | LOC: HO.MAMMO 11:08 | PROVIDERS: PCP Internal Medicine; Visit Provider Surgery | DX: Z13.89 Encounter for screening for other disorder (principal) ==

== ENCOUNTER 2025-07-11 09:55 | Outpatient (AMB) | payer BC, SELFPAY ==
[2025-07-11 10:01] VITALS: BP 126/60; PULSE 82; O2SAT 95; BMI 35.9
--- NOTE | 2025-07-11 10:01 | A.OFFPC_ITS ---
Vital Signs 07/11/25 10:01 Height 5 ft 8 in Weight 236 lb BMI 35.9 BP 126/60 Blood Pressure Location Lt brachial Position Sitting Pulse 82 Pulse Oximetry (%) 95 Oxygen Delivery Method Room Air Intake Visit Reasons: 3mth f/u Slot Shift Manager Required: No Accompanied by: Allergies No Known Allergies Allergy (Verified 07/11/25 10:05) Medication List - Last Reconciled 07/11/25 by Tony Rubin MD triamcinolone acetonide 0.5% 1 appl topical BID Tobacco use date assessed: 07/11/25 Dental Screening Dental Screen Date: 07/11/25 Did you have a dental visit in the last 12 months?: Yes Did you have a dental problem in the last 6 months where you did not have access to dental care?: No Was dental information given to patient?: Patient has dentist [facility] Medical History COVID-19 vaccine series completed History of COVID-19 Elevated cholesterol Anemia Family History Mother CVA (cerebral vascular accident) Brother CVA (cerebral vascular accident) Maternal Grandfather Throat cancer Maternal Aunt Schizophrenia Sister Breast cancer Social History Housing: House Alcohol intake: never Comment: once a month 2 drinks Patient Tobacco Use Status: Never used Tobacco Tobacco use type: Cigarette e-Cigarette/Vaping Use: Never Used Second Hand Smoke Exposure: No service: No Current occupational status: employed Current occupational exposures/hazards: No Cognitive needs: No Hearing needs: No Vision needs: No Questionnaire PHQ-9 Over the last 2 weeks, how often have you been bothered by any of the following problems? 1. Little interest or pleasure in doing things: not at all 2. Feeling down, depressed, or hopeless: not at all 3. Trouble falling or staying asleep, or sleeping too much: not at all 4. Feeling tired or having little energy: not at all 5. Poor appetite or overeating: not at all 6. Feeling bad about yourself - or that you are a failure or have let yourself or your family down: not at all 7. Trouble concentrating on things, such as reading the newspaper or watching television: not at all 8. Moving or speaking so slowly that other people could have noticed. Or the opposite - being so fidgety or restless that you have been moving around a lot more than usual: not at all 9. Thoughts that you would be better off or of hurting yourself in some way: not at all Total score: 0 Depression Screening Interpretation: Negative Depression Screening Done: Yes Source: Developed by Drs. Sen Watson, Shayy Chaudhary, Jacob Siddiqi and colleagues, with an educational amandeep from [employer]. Thrive Questionnaire Date Thrive assessed: 12/05/24 I am a: Patient What is your living situation today?: I have a steady place to live Within the past 12 months, did the food you bought not last and you didn't have the money to get more?: I choose not to answer this question Within the past 12 months, did you worry whether your food would run out before you got money to buy more?: I choose not to answer this question Do you have trouble paying for medicines?: No Do you have trouble getting transportation to medical appointments?: No Do you have trouble paying your heating and electricity bill?: No Do you have trouble taking care of your child, family member or friend?: No Do you have trouble with day-to-day activities such as bathing, preparing meals, shopping, managing finances, etc.?: No Are you currently unemployed and looking for a job?: No Are you interested in more education?: No Please select the resources that you would like help with: None Currently or been in a relationship where the following occur: No concerns reported THRIVE Score: 0 AUDIT C Alcohol Use Questionnaire (AUDIT-C) 3. How often do you have six or more drinks on one occasion?: Never Total Score: 0 PRUDENCIO-7 AMB Questionnaire PRUDENCIO-7 Date PRUDENCIO - 7 assessed: 12/05/24 Feeling nervous, anxious, or on edge: 0 = Not at all Not being able to stop or control worryin = Not at all Worrying too much about different things: 0 = Not at all Trouble relaxin = Not at all Being so restless that it is hard to sit still: 0 = Not at all Becoming easily annoyed or irritable: 0 = Not at all Feeling afraid as if something awful might happen: 0 = Not at all Total PRUDENCIO-7 score (0-4 normal; 5-9 mild; 10-14 moderate; 15-21 severe): 0 Source: Developed by Drs. Sen Watson, Shayy Chaudhary, Jacob Siddiqi and colleagues, with an educational amandeep from [employer]. Physical exam (Primary Care) Vital Signs: Last Vital Signs Pulse 82 07/11/25 10:01 BP 126/60 07/11/25 10:01 Pulse Ox 95 07/11/25 10:01 Oxygen Delivery Method Room Air 07/11/25 10:01 BMI result Body Mass Index 35.9 Tobacco/Smoking Status: Tobacco use Status Tobacco use date assessed 07/11/25 07/11/25 10:07 Patient Tobacco Use Status Never used Tobacco 07/11/25 10:07 Tobacco use type Cigarette 07/11/25 10:07 e-Cigarette/Vaping Use Never Used 07/11/25 10:07 PHQ-9: PHQ-9 Score PHQ-9: Total score 0 07/11/25 10:07 Depression Screening Interpretation: Negative Thrive Assessment: Date of Thrive Assessment Date Thrive assessed 12/05/24 07/11/25 10:07 Currently or been in a relationship where the following occur: No concerns reported Const General: alert; No acute distress Eyes Conjunctivae: conjunctivae normal Resp Auscultation: clear to auscultation bilaterally Cardio Rate: regular rate Rhythm: regular rhythm GI Inspection: Yes normal to inspection Extrem General: Yes normal to inspection and No edema Coding Level of Care Code Est Pt Level 4 (48874) Complex EM visit Add On G2211 Diagnoses Obesity (BMI 30-39.9) E66.9 Hypercholesterolemia E78.00 Tubular adenoma of colon D12.6 Left breast mass N63.20 Anemia, unspecified type D64.9 Anemia type: unspecified type Assessment & Plan Assessment & Plan (1) Obesity (BMI 30-39.9): Code(s): E66.9 - Obesity, unspecified Category: Medical Plan: Diet and exercise (2) Hypercholesterolemia: Code(s): E78.00 - Pure hypercholesterolemia, unspecified Category: Medical Plan: Avoid fried foods, chicken skin, eggs, butter margarine, pastries and meat. Be it pork or beef they have a lot of cholesterol LDL goal of less than 130 and triglyceride of less than 150 (3) Tubular adenoma of colon: Comment: July 2021 Dr. Lamb Code(s): D12.6 - Benign neoplasm of colon, unspecified Category: Medical Plan: Patient is up-to-date with colonoscopy (4) Left breast mass: Comment: May 2024n the left breast at the 4:00 axis, there is an irregular markedly hypoechoic masslike region abutting the pectoralis-as described above, suspicious. Recommend ultrasound-guided biopsy. -There are no suspicious findings in the right breast. -There is moderate right and mild to moderate left male gynecomastia. Recommend clinical management and follow-up for these findings. Biopsy Junereast, left at 4 o'clock, biopsy: Fibrovascular and prominent adipose tissue; no breast epithelium identified; negative for malignancy. Code(s): N63.20 - Unspecified lump in the left breast, unspecified quadrant Category: Surgical Plan: Patient has been advised to have a follow-up ultrasound of the breast. (5) Anemia: Comment: Anemia of chronic disease Code(s): D64.9 - Anemia, unspecified Category: Medical Qualifiers: Anemia type: unspecified type Qualified Code(s): D64.9 - Anemia, unspec ified Plan: Advised to follow-up Plan History of Present Illness The patient is a 55-year-old male presenting for a follow-up visit. The patient has a history of hypercholesterolemia and was advised to maintain an LDL goal of less than 130 mg/dL and triglycerides of less than 150 mg/dL. The l ast blood work in November 2023 showed elevated triglycerides at 191 mg/dL. The patient had a tubular adenoma of the colon, with the last colonoscopy performed in July 2021. The patient is up to date with colonoscopy screenings and is on a five-year follow-up plan due to the previous finding of a benign polyp. The patient reported a lump in the breast, which was biopsied in June 2024, revealing fibrovascular tissue with no malignancy or atypia. A follow-up targeted left breast ultrasound was recommended at six-month intervals. The patient has mild anemia with hemoglobin at 13.1 g/dL and hematocrit at 39.7%, noted in the last blood work. The renal function was normal with a creatinine level of 1.06 mg/dL, and other electrolytes were within normal limits. The patient experiences dizziness, described as a whirling sensation when changing positions, attributed to benign positional vertigo. The dizziness is not associated with chest pain or palpitations. The patient has dry skin on the penis, which is not fungal in nature and is treated with a steroid cream as needed. Health Maintenance - Colonoscopy: Up to date with screenings, next due in five years - Breast ultrasound: Recommended six-month interval follow-up - Cholesterol management: LDL goal of less than 130 mg/dL, triglycerides less than 150 mg/dL - Shingles vaccination: Discussed as a preventative measure Social History - Exercise: Patient advised to maintain an active lifestyle - Nutrition: Advised to consume iron-rich foods due to mild anemia - Hydration: Drinks three to four 16-ounce bottles of water daily Review of Systems - Cardiovascular: Denies chest pain, palpitations - Neurological: Reports dizziness when changing positions, denies syncope - Gastrointestinal: Denies abdominal pain, constipation - Genitourinary: Reports dry skin on penis, denies urinary frequency Physical Exam - Abdominal: No tenderness, bowel sounds normal Results - Labs: Hemoglobin 13.1 g/dL, Hematocrit 39.7%, Triglycerides 191 mg/dL, Creatinine 1.06 mg/dL, PSA, Vitamin B12, Folic acid within normal limits - Imaging: Breast biopsy in June 2024 showed fibrovascular tissue, no malignancy or atypia Plan Patient was informed and verbally consented to the use of an ambient scribe for clinic note documentation during this visit. 1. Hypercholesterolemia The patient is advised to maintain an LDL cholesterol level of less than 130 mg/dL and triglycerides of less than 150 mg/dL through diet and exercise. A fasting blood test will be conducted to monitor lipid levels. 2. Tubular Adenoma Of The Colon The patient is up to date with colonoscopy screenings, with the last one performed in July 2021, and is on a five-year follow-up plan. 3. Breast Lump The patient had a breast biopsy in June 2024, which showed fibrovascular tissue with no malignancy or atypia. A follow-up targeted left breast ultrasound is recommended at six-month intervals. 4. Anemia The patient has mild anemia with hemoglobin at 13.1 g/dL and hematocrit at 39.7%. The patient is advised to consume iron-rich foods and will undergo further blood work to monitor the condition. 5. Elevated Triglycerides The patient has elevated triglycerides at 191 mg/dL and is advised to follow a diet and exercise plan to reduce levels. A fasting blood test will be conducted to monitor triglyceride levels. 6. Benign Positional Vertigo The patient experiences dizziness attributed to benign positional vertigo, advised to change positions slowly and ensure adequate hydration. 7. Dry Skin On Penis The patient has dry skin on the penis, treated with a steroid cream as needed. Discussion Notes During the visit, I discussed the importance of maintaining cholesterol levels through diet and exercise, with a specific focus on achieving an LDL goal of less than 130 mg/dL and triglycerides of less than 150 mg/dL. We reviewed the patient's history of tubular adenoma and confirmed that the patient is on a five-year follow-up plan for colonoscopy screenings. The patient was informed about the benign nature of the breast lump and the need for a six-month interval follow-up ultrasound. I advised the patient to consume iron-rich foods to address mild anemia and discussed the need for further blood work. We also addressed the patient's dizziness, likely due to benign positional vertigo, and recommended slow positional changes and adequate hydration. The patient was advised to use a steroid cream for dry skin on the penis as needed. Patient Instructions - Maintain a diet and exercise routine to achieve cholesterol goals. - Schedule a follow-up colonoscopy in five years. - Follow up with a breast ultrasound in six months. - Eat iron-rich foods to help with anemia. - Change positions slowly to manage dizziness. - Use steroid cream for dry skin on the penis as needed. Orders: Orders US breast LT limited Today N63.20 - Unspecified lump in the left breast, unspecified quadrant Medications: Refilled triamcinolone acetonide 0.5% 1 appl topical BID 30 grams 0RF L30.9 - Dermatitis, unspecified
--- OUTSIDE RECORDS SUMMARY | 2025-07-11 11:00 | XMS_ITS | Clinical Summary ---
Author Organization [facility] Address [address] [place] [address] Care Team Providers Care Concrete Curer Name Role Phone Ralph Hilario MD Primary Care Provider [phone] Surgical History Surgery Date Site/Laterality Comments OTHER SURGICAL HISTORY PROCEDURE: DENIES PREVIOUS SURGERY Family History Relation Name Status Comments Brother 1 Alive Brother 2 Alive Brother 3 Alive Father Alive Mother Alive Sister Alive Social History Tobacco Use Types Packs/Day Years Used Date Smoking Tobacco: Never Alcohol Use Standard Drinks/Week Comments No 0 (1 standard drink = 0.6 oz pur e alcohol) Sex and Gender Information Value Date Recorded Sex Assigned at Not on file Legal Sex Male 8:27 AM EST Gender Identity Not on file Sexual Orientation Not on file Obstetrics History Plan of Treatment Health Maintenance Due Date Last Done Comments Hepatitis B Vaccines (1 of 3 - 19+ 3-dose series) 1988 Pneumococcal Vaccine: 50+ Ye ars (1 of 1 - PCV) 2019 Zoster Vaccines (1 of 2) 2019 DTaP,Tdap,and Td Vaccines (2 - Td or Tdap) 09/17/2020 09/17/2010 Depression Screening 11/07/2024 COVID-19 Vaccine (1 - 2023-2 5 season) 2025 Influenza Vaccine (#1) 2025 09/07/2010 HIB Vaccines Aged Out No longer eligi ble based on patient's age to complete this topic HPV Vaccines Aged Out No longer eligi ble based on patient's age to complete this topic Hepatitis A Vaccines Aged Out No long er eligible based on patient's age to complete this topic IPV Vaccines Aged Out No longer eligi ble based on patient's age to complete this topic MMR Vaccines Aged Out No longer eligi ble based on patient's age to complete this topic Meningococcal ACWY Vaccine Aged Out N o longer eligible based on patient's age to complete this topic Meningococcal B Vaccine Aged Out No l onger eligible based on patient's age to complete this topic RSV Immunization Patients Un gabriella 20 months Aged Out No longer eligible b ased on patient's age to complete this topic Varicella Vaccines Aged Out No longer eligible based on patient's age to complete this topic Care Teams Concrete Curer Relationship Specialty Start Date End Date Ralph Hilario MD [address] [place] [address] PCP - General Internal Medicine 07/09/25
--- OUTSIDE RECORDS SUMMARY | 2025-07-11 11:00 | XMS_ITS | Patient Health Record ---
Author Organization [facility] Address [address] [place] [id number] Care Team Providers Care Postal Mail Carrier Name Role Phone Tony Rubin MD Primary Care Provider Ronald Gamez Jr Unavailable [phone] Allergies No Known Allergies Reason For Referral No Information Immunizations Vaccine Route Administration Date Status Comme nts Influenza Unknown 06/17/2021 Refused Social History Tobacco Use: Social History Observation Description Date Details (start date - stop date) Never Smoker NA - NA Tobacco Use/Smoking Question Answer Notes Patient is a nonsmoker Alcohol Screen Question Answer Notes Did you have a drink containing alcohol in the p ast year? No Points 0 Interpretation Negative Problems Problem Type SNOMED Code ICD Code Onset Dates Problem Status W/U Status Risk Notes Problem [id number] Colon cancer screening (Z12.11) Active confirmed Problem [id number] Abnormal findings in stool (R19.5) Active confirmed Plan Of Treatment Future Test Test Name Order Date COLONOSCOPY 06/17/2021 Insurance Providers Payer Name Payer Address Payer Phone Subscriber Number Group Number Insured Name Patient Relationship to Insured Coverage Start Date Coverage End Date [facility] [address] [place] [address] [id number] LILIA SMITH Self - patient is the insured Medical (General) History Medical History History ICD Code Denies [place],DM,CVA,Lung disease,renal dise ase Surgical History Surgery Date(Month/Year)
== END 2025-07-11 11:40 | disposition home or self-care (01) ==
LOC: HO.HMCH 09:56
PROVIDERS: PCP Internal Medicine; Visit Provider Internal Medicine
DX: E78.00 Pure hypercholesterolemia, unspecified (principal); E66.9 Obesity, unspecified; Z68.35 Body mass index [BMI] 35.0-35.9, adult; D12.6 Benign neoplasm of colon, unspecified; N63.20 Unspecified lump in the left breast, unspecified quadrant; D64.9 Anemia, unspecified